=== PATIENT | male | born 1985 | race Two or more races ===

== ENCOUNTER 2018-05-01 10:10 | Day surgery (SDC) | payer OTHER ==
[2018-05-01] VITALS (10 sets, daily range): BP systolic 114–125; BP diastolic 71–88
[~2018-05-01] VITALS: Ht 170.2 cm; Wt 74.8 kg
[2018-05-01] MEDS ORDERED: EPINEPHrine 1mg/1ml Amp ONE (10:38)
[2018-05-01] MEDS ORDERED: Ropivacaine 5mg/ml Vial 30ml INJ ONE ×2 (10:39→11:04)
[2018-05-01] MEDS ORDERED: Bupivacaine w/Epi 0.5% 30ml Vial INJ ONE (10:39)
[2018-05-01] MEDS ORDERED: NKM (10:49)
[2018-05-01] MEDS ORDERED: fentaNYL 100 mcg/2 mL IV ONE (10:55)
[2018-05-01] MEDS ORDERED: Midazolam 2mg/2ml Inj ONE (10:55)
[2018-05-01] MEDS ORDERED: Lidocaine 1% MPF 10mg/ml 5ml ONE ×2 (10:56→11:02)
[2018-05-01] MEDS ORDERED: Sodium Chloride 10ml vial INJ ONE (10:56)
[2018-05-01] MEDS ORDERED: Propofol 200mg/20ml IV ONE (10:56)
--- NOTE | 2018-05-01 11:38 | Anethesia Preoperative Eval ---
Anesthesia Pre-op PMH/ROS General Date of Evaluation: May 01, 2018 Time of Evaluation: 11:34 Anesthesiologist: Rishi ASA Score: ASA 2 Mallampati Score Class I : Soft palate, uvula, fauces, pillars visible Class II: Soft palate, uvula, fauces visible Class III: Soft palate, base of uvula visible Class IV: Only hard plate visible Mallampati Classification: Class II Surgeon: Phuong Diagnosis: L shoulder pain Surgical Procedure: L shoulder scope Anesthesia History: none Family History: no anesthesia problems Allergies: Coded Allergies: No Known Allergies (Unverified , 05/01/18) Medications: see eMAR Patient NPO?: Yes Past Medical History Cardiovascular: Denies: HTN, CAD, DE, valve dz, arrhythmia, other Pulmonary: Denies: asthma, COPD, MALKA, other Gastrointestinal/Genitourinary: Reports: GERD - mild; Denies: CRI, ESRD, other Neurologic/Psychiatric: Denies: dementia, CVA, depression/anxiety, TIA, other Endocrine: Denies: DM, hypothyroidism, steroids, other HEENT: Denies: cataract (L), cataract (R), glaucoma, [place] (L), [place] (R), other Hematology/Immune: Denies: anemia, DVT, bleeding disorder, other Musculoskeletal/Integumentary: Denies: OA, RA, DJD, DDD, edema, other PMH Narrative: as above PSxH Narrative: Appendectomy Anesthesia Pre-op Phys. Exam Physician Exam Last Vital Signs Date Time Temp Pulse Resp B/P (MAP) Pulse Ox O2 Delivery O2 Flow Rate FiO2 05/01/18 10:46 Room Air 05/01/18 10:45 97.8 60 18 114/71 99 97.8 Constitutional: NAD Neurologic: CN 2-12 intact Cardiovascular: RRR, no M/R/G Respiratory: CTA Gastrointestinal: S/NT/ND Airway Exam Mallampati Score: Class II MO: full Neck: flexible ROM: full Teeth: intact Dentures: no upper, no lower Anesthesia Pre-op A/P Labs see chart Studies Pre-op Studies: EKG - NSR Risk Assessment & Plan Assessment: ASA 2 Plan: GA with ETT, L brachial plexus block for postoperative pain control PONV prevention Status Change Before Surgery: No Pre-Antibiotics Drug: Ancef 2 gr. Given Within 1 Hr of Incision: Yes Time Given: 11:50 Joe Blackwell MD May 01, 2018 11:38
--- NOTE | 2018-05-01 11:51 | Pre-Procedure Note/Attestation ---
Pre-Procedure Note/Attestation Complete Prior to Procedure Planned Procedure: left Procedure Narrative: Left shoulder scope with subacromial decompression, debridement vs repair RC, synovectomy, bursectomy, possible distal clavicle resection and related procedures Attestation I attest that I discussed the nature of the procedure; its benefits; risks and complications; and alternatives (and the risks and benefits of such alternatives ), prior to the procedure, with the patient (or the patient's legal indirect sales representative). I attest that, if there was a reasonable possibility of needing a blood transfusion, the patient (or the patient's legal indirect sales representative) was given the [facility] standardized written summary, pursuant to the Marcell[place] Blood Safety Act ([place] Health and Safety Code # 1645, as amended). I attest that I re-evaluated the patient just prior to the surgery and that there has been no change in the patient's H&P, except as documented below: Corbin Baca MD May 01, 2018 11:51
[2018-05-01] MEDS ORDERED: LR 1000ml ONE (12:00)
[2018-05-01] MEDS ORDERED: Zemuron 50mg/5ml Inj IV ONE (12:00)
[2018-05-01] MEDS ORDERED: Neostigmine 1mg/ml 10ml Inj ONE (12:00)
[2018-05-01] MEDS ORDERED: NS Irrig 4000ml IRRIG ONE (12:00)
[2018-05-01] MEDS ORDERED: Glycopyrrolate 0.2mg/ml 1ml Vial ONE (12:41)
[2018-05-01] MEDS ORDERED: Ketorolac 30mg Inj ONE (12:42)
[2018-05-01] MEDS ORDERED: Meperidine 50mg/ml Inj(FOR RIGORS ONLY) IV PRN (13:00)
[2018-05-01] MEDS ORDERED: fentaNYL 100 mcg/2 mL IV PRN (13:00)
[2018-05-01] MEDS ORDERED: DiphenhydrAMINE 50mg/ml Inj IVP PRN (13:00)
[2018-05-01] MEDS ORDERED: Metoclopramide 10mg/2ml Inj IVP PRN (13:00)
[2018-05-01] MEDS ORDERED: Ketorolac 30mg Inj IV PRN (13:00)
--- NOTE | 2018-05-01 13:47 | Brief Operative Note ---
Immediate Post Operative Note Operative Note Procedure: L SH SCOPE, RC DEBRIDEMENT, SAD Post-op Diagnosis: same as pre-op Findings: consistent w/pre-op dx studies Surgeon: YOLIE Anesthesiologist: JESSIE Anesthesia: general, other - INTERSCALENE BLOCK Specimen: yes Complications: none Condition: stable Fluids: 800CC CRYSTALLOID Estimated Blood Loss: none Drains: none Implant(s) used?: No Corbin Baca MD May 01, 2018 13:47
--- NOTE | 2018-05-01 13:51 | Immediate Post-Op Evaluation ---
Immediate Post-Op Evalulation Immediate Post-Op Evalulation Procedure: L shoulder arthroscopy subacromion decompression Date of Evaluation: May 01, 2018 Time of Evaluation: 13:50 IV Fluids: 800 Blood Products: none Estimated Blood Loss: min Urinary Output: none Blood Pressure Systolic: 118 Blood Pressure Diastolic: 65 Pulse Rate: 72 Respiratory Rate: 20 O2 Sat by Pulse Oximetry: 99 Temperature (Fahrenheit): 97.5 Pain Score (1-10): 1 Nausea: No Vomiting: No Complications none Patient Status: reacts, patent, none Hydration Status: adequate Joe Blackwell MD May 01, 2018 13:51
--- NOTE | 2018-05-01 17:09 | 48 Hour Post Anesthesia Eval ---
Post Anesthesia Evaluation Procedure: L shoulder arthroscopy subacromion decompression Date of Evaluation: May 01, 2018 Time of Evaluation: 17:08 Blood Pressure Systolic: 118 0: 74 Pulse Rate: 64 Respiratory Rate: 20 Temperature (Fahrenheit): 97.6 O2 Sat by Pulse Oximetry: 98 Airway: patent Nausea: No Vomiting: No Pain Intensity: 2 Hydration Status: adequate Cardiopulmonary Status: stable Mental Status/LOC: patient returned to baseline Follow-up Care/Observations: n/a Post-Anesthesia Complications: none Follow-up care needed: ready to discharge Joe Blackwell MD May 01, 2018 17:09
--- NOTE | 2018-05-03 02:15 | Operative Note - Dictated ---
DATE OF OPERATION: 05/01/2018 PREOPERATIVE DIAGNOSIS: Left shoulder rotator cuff tendinitis. POSTOPERATIVE DIAGNOSES: Left shoulder subacromial spur with impingement and left shoulder partial-thickness bursal sided rotator cuff tear. PROCEDURES PERFORMED: 1. Left shoulder subacromial decompression with release of coracoacromial ligament, subtotal bursectomy, and acromioplasty. 2. Arthroscopic debridement of rotator cuff. SURGEON: Corbin Baca M.D. ANESTHESIOLOGIST: Joe Blackwell M.D. ANESTHESIA: General endotracheal anesthesia with interscalene block. COMPLICATIONS: None. SPECIMEN: Arthroscopic shavings. ANTIBIOTICS: 1 g of IV Ancef. INDICATIONS: The patient presented with left shoulder pain and with overhead activities with failed nonoperative treatment. Options for above treatment was given. Risks, alternatives, and benefits were discussed with the patient at length. Risks include, but are not limited to, anesthesia complications including , medical complications including liver, kidney, and cardiopulmonary deficits, infection, bleeding, neurovascular injury, loss of range of motion, stiffness, need for revision surgery, loss of use of the extremity, and . GROSS FINDINGS: With the patient under anesthesia, the patient had full range of motion of the shoulder with good stability via arthroscopy. The biceps tendon and superior labrum were normal. The posterior labrum and inferior recess were normal. The glenoid cartilage was normal. The rotator cuff and articular surface was normal. The humeral head articular surface was normal. The subscapularis tendon was normal. The middle glenohumeral ligament was normal. On the bursal surface, the coracoacromial ligament was hypertrophied, rough and irregular. There was a nodular subacromial spur. There was a 25% thickness tear of the supraspinatus and infraspinatus tendon at the midportion of the supraspinatus and infraspinatus. There was significant bursitis and inflammatory response in the subacromial space. DESCRIPTION OF PROCEDURE: The patient was brought into the operating room supine on the stretcher. Appropriate IV lines were placed and 1 g of Ancef was administered. An interscalene block was administered. The patient was induced and intubated without complication. Ligamentous exam under anesthesia was done and showed no instability. The patient was placed into the lateral decubitus position with the left side up. The arm was placed in 30 degrees of forward flexion and 45 degrees of abduction. Axillary roll was placed and all bony prominences were well padded. SCD was placed over the left arm with 10 pounds of traction. The arm was prepped and draped in the usual sterile fashion with alcohol, ChloraPrep, and Ioban draping. Arthroscopy, the joint was entered posteriorly with a blunt-tip obturator and an operating cannula was placed after making a small skin incision. The anterolateral portal was made with the aid of a switching stick. A 50 point examination of the glenohumeral joint was done with the above findings. Rotator cuff debridement, at this point a full radius shaver was used to debride the bursal surface of the rotator cuff until all frayed tissues were removed and the bed of healthy tissue has remained. Bursoscopy, prior to this, the arm was changed to the bursoscopy position with 10 pounds of traction. The bursa was entered in the usual fashion with the anterior and posterior portals were established. A full examination of the subacromial space was done with the above findings. A lateral portal was established. Decompression, the heat probe and shaver was used through the lateral portal to skeletonize the undersurface of the acromion, removed the soft tissues and fully released the coracoacromial ligament. A high-speed bur was used through the lateral portal to remove bone from the anterior edge of the acromion and tapering gradually to the posterior edge of the AC joint. All loose debris and loose bodies were taken out of harm's way in the subacromial space. Rotator cuff debridement. Again, at this point, a final check of the rotator cuff was done. All frayed and loose rotator cuff tissue was debrided until a bed of healthy tissue remained. This was a partial thickness tear measuring approximately 25% and at this point it was deemed not necessary to do a formal rotator cuff repair. At this point, all instruments were removed from the shoulder. The portals were closed with 3-0 nylon sutures in a horizontal mattress fashion. Xeroform, sterile dressing, and tape was placed. Sling was placed. The patient was taken to the recovery room in stable condition. Postoperative pain medications as well as postoperative appointment and instructions were given. Corbin Baca M.D. DR: MERY JOB#: [id number] CC:
== END 2018-05-01 11:35 | disposition home or self-care (01) ==
LOC: SUR 10:10
DX: M75.102 Unspecified rotator cuff tear or rupture of left shoulder, not specified as traumatic (principal); M75.82 Other shoulder lesions, left shoulder; M75.42 Impingement syndrome of left shoulder; K21.9 Gastro-esophageal reflux disease without esophagitis
CPT/HCPCS: 29822; 29826; J0171; J0690; J1885; J2250; J2405; J2704; J2710; J2795; J3010; 94003; 94150